=== PATIENT | female | born 1980 | race Asian ===

== ENCOUNTER 2021-12-19 21:55 | Emergency (ER) | payer OTHER ==
[2021-12-19 22:47] LABS: BILIRUBIN,URINE NEGATIVE (NEGATIVE); GLUCOSE, URINE (UA) NEGATIVE (NEGATIVE); KETONES,URINE (UA) NEGATIVE (NEGATIVE); LEUKOCYTE ESTERASE, URINE MODERATE (NEGATIVE); NITRITE,URINE POSITIVE (NEGATIVE); OCCULT BLOOD,URINE LARGE (NEGATIVE); PH,URINE 6.5 PH (5.0-7.5); PROTEIN,URINE >=300 mg/dL (NEGATIVE); UROBILINOGEN,URINE 0.2 (NORMAL) E.U./dL (NORMAL)
[2021-12-19 22:50] LABS: CLARITY,URINE CLOUDY (CLEAR); HCG UR QUAL NEGATIVE
[2021-12-19 22:55] LABS: BACTERIA,URINE Many /HPF (None Seen); RBC,URINE TNTC /HPF (0-5); SQUAMOUS EPITHELIAL CELL,UR RARE Squamous (<= Few); WBC CLUMPS,URINE PRESENT; WBC,URINE >25 /HPF (0-5)
[2021-12-19] MEDS ORDERED: PHENAZOPYRIDINE 100 MG TABLET PO STA (23:04)
[2021-12-19] MEDS ORDERED: NITROFURANTOIN MACRO 100 MG CAPSULE PO STA (23:05)
--- NOTE | 2021-12-19 23:07 | ED Physician Documentation ---
PD HPI FEMALE - Stated complaint Stated Complaint: FEMALE - Chief complaint Chief Complaint: UTI - History obtained from History obtained from: Patient - Additional information Additional information: Patient is a 41-year-old female with no significant past medical history presenting for evaluation of 2 days of dysuria, urinary frequency and urgency. She is just completing her menses. She reports having a history of bladder infections and this feels similar. She denies fever, chest pain, difficulty breathing, abdominal pain, vomiting, back pain, abnormal vaginal discharge or pelvic pain. She denies concerns for sexually transmitted infections.She has not taken anything for her symptoms. Review of Systems Constitutional: denies: Fever Nose: denies: Congestion Throat: denies: Sore throat Cardiac: denies: Chest pain / pressure Respiratory: denies: Dyspnea GI: denies: Abdominal Pain, Vomiting : reports: Dysuria, Frequency. denies: Hematuria, Discharge, Vaginal bleeding Skin: denies: Rash Musculoskeletal: denies: Back pain Neurologic: denies: Headache PD PAST MEDICAL HISTORY - Past Medical History Past Medical History: No - Past Surgical History Past Surgical History: No - Present Medications Home Medications: Ambulatory Orders Medication Instructions Recorded Confirmed Nitrofurantoin [Macrobid] 1 cap PO BID #10 cap 12/19/21 Phenazopyridine HCl [Pyridium] 200 mg PO TID PRN #6 tablet 12/19/21 - Allergies Allergies/Adverse Reactions: Allergies Allergy/AdvReac Type Severity Reaction Status Date / Time No Known Drug Allergies Allergy Verified 12/19/21 22:15 - Social History Does the pt smoke?: No Smoking Status: Never smoker Does the pt drink ETOH?: No Does the pt have substance abuse?: No - Immunizations Immunizations are current?: Yes PD ED PE NORMAL - General General: Alert and oriented X 3, No acute distress, Well developed/nourished - HEENT HEENT: Atraumatic, Moist mucous membranes - Neck Neck: Supple, no meningeal sign - Cardiac Cardiac: RRR, No murmur, Strong equal pulses - Respiratory Respiratory: No respiratory distress, Clear bilaterally - Abdomen Abdomen: Normal bowel sounds, Soft, Non tender, Non distended - Back Back: No CVA TTP - Derm Derm: Warm and dry - Extremities Extremities: No edema - Neuro Neuro: Normal speech Results - Vitals Vitals: Vital Signs - 24 hr 12/19/21 12/19/21 22:15 23:12 Temperature 36.5 C 36.6 C Heart Rate 79 75 Respiratory 16 16 Rate Blood Pressure 130/60 128/64 O2 Saturation 100 99 Oxygen O2 Source Room air - Labs Labs: Laboratory Tests 12/19/21 22:10 Urine Color YELLOW Urine Clarity CLOUDY Urine pH 6.5 Ur Specific Bee 1.025 Urine Protein >=300 H Urine Glucose (UA) NEGATIVE Urine Ketones NEGATIVE Urine Occult Blood LARGE H Urine Nitrite POSITIVE H Urine Bilirubin NEGATIVE Urine Urobilinogen 0.2 (NORMAL) Ur Leukocyte Esterase MODERATE H Urine RBC TNTC H Urine WBC >25 H Urine WBC Clumps PRESENT Ur Squamous Epith Cells RARE Squamous Urine Bacteria Many H Ur Microscopic Review INDICATED Urine Culture Comments INDICATED Urine HCG, Qual NEGATIVE PD MEDICAL DECISION MAKING - ED course Complexity details: reviewed results, re-evaluated patient ED course: Patient with 2 days of dysuria, urinary urgency and frequency. Urine analysis indicates UTI. She is not . Her vital signs are stable and she has no abdominal tenderness or flank tenderness on exam. She does not appear septic. Patient started on Pyridium and Macrobid. She is advised on return precautions. Departure - Departure Disposition: 01 Home, Self Care Clinical Impression: Cystitis Condition: Stable Instructions: ED UTI Cystitis Female Prescriptions: Nitrofurantoin [Macrobid] 1 cap PO BID #10 cap Phenazopyridine HCl [Pyridium] 200 mg PO TID PRN #6 tablet PRN Reason: dysuria Comments: You were evaluated and diagnosed with a urinary tract infection. I have started you on antibiotic called Macrobid as well as a medication called Pyridium which may aid with the burning sensation but will turn your urine orange. I have sent these prescriptions also to the [facility] pharmacy in [place]. These make sure to complete the antibiotic. Give any worsening symptoms such as fever, pain, vomiting or any other concerns return to the emergency department. Discharge Date/Time: 12/19/21 23:12
[2021-12-19 23:14] VITALS: BP 128/64
== END 2021-12-19 23:12 | disposition home or self-care (01) ==
LOC: ED 21:55
DX: N30.90 Cystitis, unspecified without hematuria (principal)
CPT/HCPCS: 81001; 81025; 87086; 87181; 99282; 99283; A9270; 81003